=== PATIENT | female | born 2000 | race Two or more races ===

== ENCOUNTER 2020-09-09 20:01 | Emergency (ER) | payer MEDICAID ==
[~2020-09-09] VITALS: Ht 162.6 cm; Wt 77.0 kg
[2020-09-09] MEDS ORDERED: FAMOTIDINE 20 MG TABLET ONE (20:20)
[2020-09-09] MEDS ORDERED: FAMOTIDINE 20 MG TABLET PO ONE (20:30)
[2020-09-09] MEDS ORDERED: DIPHENHYDRAMINE 25 MG CAPSULE PO ONE (23:30)
[2020-09-09] MEDS ORDERED: DIPHENHYDRAMINE 25 MG CAPSULE ONE (23:56)
--- NOTE | 2020-09-10 00:16 | NUR ---
PELVIC EXAM CONDUCTED BY MED STUDENT. I CHAPERONED. SPECIMENS WALKED TO LAB.
[2020-09-10 00:25] LABS: HCG UR SG 1.017 (1.003-1.030); MICROSCOPIC AUTO
[2020-09-10 01:03] LABS: CLUE CELLS PRESENT (NONE SEEN); WET PREP WBCS MODERATE (FEW)
--- NOTE | 2020-09-10 01:15 | NUR ---
REPORT RECEIVED FROM RM DUCKWORTH. PLAN OF CARE DISCUSSED.
[2020-09-10] MEDS ORDERED: CEFTRIAXONE 250 MG IM ONE (02:00)
[2020-09-10] MEDS ORDERED: AZITHROMYCIN 500 MG TABLET PO ONE (02:00)
[2020-09-10] MEDS ORDERED: LIDOCAINE-MPF 1%, 2ML ONE (02:07)
[2020-09-10] MEDS ORDERED: AZITHROMYCIN 250 MG TABLET ONE (02:08)
[2020-09-10] MEDS ORDERED: CEFTRIAXONE 250 MG ONE (02:08)
--- NOTE | 2020-09-10 02:19 | NUR ---
PATIENT MEDICATED PER EMAR, TOLERATED WELL
--- NOTE | 2020-09-10 02:19 | NUR ---
Patient given discharge instructions and follow up care and they have confirmed that they understand the instructions. Patient ambulatory with steady gait.
[2020-09-10 02:20] VITALS: BP 123/78
== END 2020-09-10 02:27 | disposition home or self-care (01) ==
LOC: ED 20:31
DX: L27.0 Generalized skin eruption due to drugs and medicaments taken internally (principal); T36.0X5A Adverse effect of penicillins, initial encounter; N30.00 Acute cystitis without hematuria; N76.0 Acute vaginitis; J02.9 Acute pharyngitis, unspecified; Y92.89 Other specified places as the place of occurrence of the external cause
CPT/HCPCS: 36415; 81001; 81025; 86308; 86592; 87081; 87086; 87210; 87491; 87591; 87808; 87880; 96372; 99284; J0696; J7512; Q0163; Q0177